=== PATIENT | male | born 1960 | race Caucasian/White ===

== ENCOUNTER 2017-08-31 12:23 | Day surgery (SDC) | payer OTHER ==
[~2017-08-31] VITALS: Ht 182.9 cm; Wt 149.7 kg
[~2017-08-31 12:23] MED LIST: ASPIRIN EC325 MG PO; LISINOPRIL-HCT1 EAC1 PO
[2017-08-31] MEDS ORDERED: FLOMAX0.4 MG PO (12:40)
--- NOTE | 2017-09-01 09:22 | OR ---
[facility] [address] [place], [place] [address] Signed DATE OF OPERATION: 08/31/2017 SURGEON: Lakeshia Adorno MD PREOPERATIVE DIAGNOSIS: Colon evaluation for surveillance. POSTOPERATIVE DIAGNOSIS: Sigmoid diverticulosis. No evidence of polyps. PROCEDURE: Total colonoscopy to cecum. ANESTHESIA: Intravenous sedation, fentanyl 150 mcg, Versed 8 mg. INDICATION: A 57-year-old white man, a patient of Dr. Bull, underwent colonoscopy in the past by me, which was said to be normal. He had an episode of rectal bleeding number of months ago, while having the flu or some other similar illness, but none recently and no bleeding currently, and no diarrhea or constipation. He has no family history of colon cancer that is aware of. He is admitted at this time to undergo colonoscopy. He understands the risks of bleeding, infection, and perforation. FINDINGS: The prep was good. Complete colonoscopy was undertaken to the cecum. There were few diverticula of the sigmoid, but no polyps or colitis. DESCRIPTION OF PROCEDURE: The patient was brought to the endoscopy suite and placed in lateral decubitus position given intravenous sedation to the point of slurred speech and nystagmus. Digital rectal examination was normal. An Olympus video colonoscope was passed in the rectum and manipulated throughout the colon ultimately intubating the cecum itself. The scope was withdrawn from that point and examination was undertaken. A thorough examination with the back and forth motion of the scope allowed for good visualization throughout. Diverticula were noted within the sigmoid area, but there was no sign of polyp anywhere. Retroflexed view of the rectum was normal. The scope was removed and the patient was taken to recovery room in good condition. CONCLUDING DIAGNOSIS: Electronically Signed By: LAKESHIA ADORNO MD 09/01/17 0922 PATIENT NAME: LAKESHIA COLLADO OPERATIVE REPORT DATE OF : 58 REPORT #: [id number] PHYSICIAN: LAKESHIA ADORNO MD PCP: CARLOS BULL DO REPORT IS CONFIDENTIAL AND NOT TO BE RELEASED WITHOUT AUTHORIZATION [facility] [address] [place], [place] [address] Signed Sigmoid diverticulosis. No evidence of polyps. PLAN: Recommend high-fiber diet. Repeat colonoscopy in 10 years sooner if clinically indicated. He will return to the ongoing care of Dr. Bull or his successor in the near future. MD MORGAN Merlos/LUMA /[id number] cc: Carlos Bull DO Copies: CARLOS BULL DO ~ Electronically Signed By: LAKESHIA ADORNO MD 09/01/17 0922 PATIENT NAME: LAKESHIA COLLADO OPERATIVE REPORT DATE OF : 58 REPORT #: [id number] PHYSICIAN: LAKESHIA ADORNO MD PCP: CARLOS BULL DO REPORT IS CONFIDENTIAL AND NOT TO BE RELEASED WITHOUT AUTHORIZATION
== END 2017-08-31 14:40 | disposition home or self-care (01) ==
LOC: DS 12:23 → OPS 12:23 → DS 13:00 → OPS 14:40
PROVIDERS: Surgery
PROC: 0DJD8ZZ Inspection of Lower Intestinal Tract, Via Natural or Artificial Opening Endoscopic (ICD-10-PCS; principal; 2017-08-31 13:00)
DX: Z12.11 Encounter for screening for malignant neoplasm of colon (principal); K57.30 Diverticulosis of large intestine without perforation or abscess without bleeding; I10 Essential (primary) hypertension; G47.30 Sleep apnea, unspecified; R35.0 Frequency of micturition; E66.01 Morbid (severe) obesity due to excess calories; Z99.89 Dependence on other enabling machines and devices; Z68.41 Body mass index [BMI] 40.0-44.9, adult
CPT/HCPCS: 99153; G0500; J2250; J3010; J7120

== ENCOUNTER 2017-09-25 14:25 | Emergency (ER) | payer OTHER ==
[~2017-09-25] VITALS: Ht 182.9 cm; Wt 149.7 kg
[~2017-09-25 14:25] MED LIST changes: +FLOMAX0.4 MG PO
== END 2017-09-25 15:00 | disposition home or self-care (01) ==
LOC: ED 14:25
DX: S61.211A Laceration without foreign body of left index finger without damage to nail, initial encounter (principal); I10 Essential (primary) hypertension; Z79.899 Other long term (current) drug therapy; W23.0XXA Caught, crushed, jammed, or pinched between moving objects, initial encounter
CPT/HCPCS: 99282

== ENCOUNTER 2018-06-22 08:24 | Emergency (ER) | payer OTHER ==
[~2018-06-22] VITALS: Ht 182.9 cm; Wt 154.2 kg
[2018-06-22] MEDS ORDERED: MELOXICAM15 MG PO (09:54)
[2018-06-22] MEDS ORDERED: CARDIZEM CD120 MG PO (09:59)
[2018-06-22] MEDS ORDERED: MACROBID 100 M100 MG PO (09:59)
--- NOTE | 2018-06-22 13:40 | EKG ---
[facility] [address] [facility] [place], [place] [address] Signed Atrial fibrillation with rapid ventricular response Incomplete right bundle branch block Inferior infarct , age undetermined Abnormal ECG No previous ECGs available Confirmed by MYRIAM DURON DO ([id number]) on 06/22/2018 1:39:55 PM Electronically Signed By: MYRIAM DURON DO 06/22/18 1340 PATIENT NAME: LAKESHIA COLLADO A Electrocardiogram DATE OF : 58 PHYSICIAN: MYRIAM DURON DO REPORT #: [id number] REPORT IS CONFIDENTIAL AND NOT TO BE RELEASED WITHOUT AUTHORIZATION
--- NOTE | 2018-06-22 13:40 | EKG ---
[facility] [address] [facility] [place] [address] Signed Normal sinus rhythm Left axis deviation Low voltage QRS Incomplete right bundle branch block Inferior infarct (cited on or before 22-JUN-2018) Abnormal ECG When compared with ECG of 22-JUN-2018 08:31, (Unconfirmed) Sinus rhythm has replaced Atrial fibrillation Vent. rate has decreased BY 73 BPM Confirmed by MYRIAM DURON DO ([id number]) on 06/22/2018 1:40:04 PM Electronically Signed By: MYRIAM DURON DO 06/22/18 1340 PATIENT NAME: LAKESHIA COLLADO Electrocardiogram DATE OF : 58 PHYSICIAN: MYRIAM DURON DO REPORT #: [id number] REPORT IS CONFIDENTIAL AND NOT TO BE RELEASED WITHOUT AUTHORIZATION
== END 2018-06-22 10:12 | disposition home or self-care (01) ==
LOC: ED 08:24
DX: I48.91 Unspecified atrial fibrillation (principal); R31.9 Hematuria, unspecified; I10 Essential (primary) hypertension; Z87.440 Personal history of urinary (tract) infections; Z79.899 Other long term (current) drug therapy
CPT/HCPCS: 71045; 80053; 81001; 83880; 84484; 85025; 93005; 93010; 96374; 99285-25

== ENCOUNTER 2020-03-02 14:02 | Emergency (ER) | payer OTHER ==
[~2020-03-02] VITALS: Ht 182.9 cm; Wt 143.3 kg
[~2020-03-02 14:02] MED LIST changes: +CARDIZEM CD120 MG PO; +CIPRO500 MG PO; +DILTIAZEM ER180 MG PO; +MACROBID 100 M100 MG PO; +MELOXICAM15 MG PO; +OXYBUTYNIN CHLOR5 MG PO; +PERCOCET 5-3251 EACH PO
[2020-03-02] MEDS ORDERED: OXYBUTYNIN CHLO10 MG PO (14:09)
[2020-03-02] MEDS ORDERED: HYDROCHLOROTHIA25 MG PO (14:09)
--- NOTE | 2020-03-03 15:19 | EKG ---
[facility] [address] [facility] [place] [address] Signed Normal sinus rhythm Left axis deviation Inferior infarct (cited on or before 22-JUN-2018) Abnormal ECG When compared with ECG of 22-JUN-2018 10:03, Vent. rate has increased BY 31 BPM Confirmed by MYRIAM DURON DO ([id number]) on 03/03/2020 10:59:15 AM Electronically Signed By: MYRIAM DURON DO 03/03/20 1519 PATIENT NAME: LAKESHIA COLLADO Electrocardiogram DATE OF : 58 PHYSICIAN: MYRIAM DURON DO REPORT #: [id number] REPORT IS CONFIDENTIAL AND NOT TO BE RELEASED WITHOUT AUTHORIZATION
== END 2020-03-02 14:57 | disposition home or self-care (01) ==
LOC: ED 14:02
DX: R00.2 Palpitations (principal); I10 Essential (primary) hypertension; I48.91 Unspecified atrial fibrillation; Z79.899 Other long term (current) drug therapy; Z79.82 Long term (current) use of aspirin
CPT/HCPCS: 93005; 93010; 99284-25

== ENCOUNTER 2020-12-31 07:30 | Day surgery (SDC) | payer OTHER ==
--- NOTE | 2020-12-29 03:50 | PATH ---
[facility] [address] [place], [place] [address] Signed ORDERING PHYSICIAN: Nisreen Hogan MD PATIENT NAME: LAKESHIA COLLADO GENDER: Ann Marie : 1960 SPECIMEN(S): MOLECULAR PATHOLOGY RESULTS: SARS-CoV-2 Not Detected ADDITIONAL NOTES.: The Deane Fusion SARS-CoV-2 Assay is a multiplex real-time PCR (RT-PCR) in vitro diagnostic test intended for the qualitative detection of RNA from SARS-CoV-2 from individuals who meet COVID-19 clinical and/or epidemiological criteria. In general, SARS-CoV-2 RNA can be detected during the acute phase of infection. Positive results indicate the presence of SARS-CoV-2 RNA. Clinical correlation with patient history and other diagnostic information is necessary to determine patient infection status. Positive results do not rule out bacterial infection or co-infection with other viruses. Negative results do not preclude SARS-CoV-2 infection and should not be used as the sole basis for patient management decisions. Negative results must be combined with other clinical observations, patient history, and epidemiological information. The Deane Fusion SARS-CoV-2 Assay is not yet approved or cleared by the [place] FDA. When there are no FDA-approved or cleared tests available, and other criteria are met, FDA can make tests available under an emergency access mechanism called an Emergency Use Authorization (EUA). The EUA for this test is supported by the Venipuncturist of Health and Human Service's (HHS's) declaration that circumstances exist to justify the emergency use of in vitro diagnostics for the detection and/or diagnosis of the virus that causes COVID-19. This EUA will remain in effect for the duration of the COVID-19 declaration justifying emergency of IVDs, unless it is terminated or revoked by FDA, after which the test may no longer be used. The Deane Fusion SARS-CoV-2 Assay is for use only under EUA in US laboratories certified under the Clinical Laboratory Improvement Amendments of 1987 (CLIA) to perform high complexity tests. [facility] is certified under CLIA to perform high complexity PATIENT NAME: LAKESHIA COLLADO PATHOLOGY DATE OF : 58 REPORT #: [id number] PHYSICIAN: ALEJANDRO VARGAS PCP: WHITNEY CARTER PA-C REPORT IS CONFIDENTIAL AND NOT TO BE RELEASED WITHOUT AUTHORIZATION [facility] [address] [place] [id number] Signed clinical laboratory testing. Federico Enriquez PERFORMING LABORATORY.: Molecular testing was performed by [facility], [address], [place] [address], , CLIA #: [id number]. Diagnostician: System Interface Pathologist Electronically Signed 12/29/2020 Copies: ~ PATIENT NAME: LAKESHIA COLLADO PATHOLOGY DATE OF : 58 REPORT #: [id number] PHYSICIAN: ALEJANDRO VARGAS PCP: WHITNEY CARTER PA-C REPORT IS CONFIDENTIAL AND NOT TO BE RELEASED WITHOUT AUTHORIZATION
[~2020-12-31] VITALS: Ht 182.9 cm; Wt 150.0 kg
[~2020-12-31 07:30] MED LIST changes: +CARTIA XT180 MG PO; +HYDROCHLOROTHIA25 MG PO; +MOBIC15 MG PO; +OXYBUTYNIN CHLO10 MG PO
--- NOTE | 2020-12-31 13:28 | NUR ---
12/31/20 1328 Beatriz Linares 1255- PT TO PACU IN SUPINE POSITION. EYES CLOSED DOES NOT RESPOND TO VERBAL OR TACTILE STIMULI. ORAL AND NASAL AIRWAY IN PLACE. SP02 90% ON 15 L O2 VIA SIMPLE MASK. CUTTER WOODWIND REEDS AT BEDSIDE. 1300- PT HOB ELEVATED. PT STIMULATED WITH JAW THRUST MANUVER AND ENCOURAGED TO TAKE DEEP BREATHS. SPO2 90% ON 15 L O2 VIA SIMPLE MASK. PT MOVING EXTREMITIES BUT WILL NOT YET FOLLOW COMMANDS. WILL CONTINUE TO MONITOR. 1305- PT TONGUES OUT ORAL AIRWAY AND OPENS EYES. PT ENCOURAGED TO COUGH AND TAKE DEEP BREATHS. SPO2 100%. O2 TITRATED DOWN TO 10 L VIA SIMPLE MASK. PT DENIES PAIN. VSS. URINE RED, CATHETER FLUSHED, BLOOD CLOT OBSERVED. BRIGHT YELLOW URINE OBSERVED FOLLOWING FLUSH. 1310- PT FOLLOWING COMMANDS AND DENIES PAIN. RESPONDS TO VERBAL STIMULI. BREATHING EASY AND UNLABORED WITH INTERMITTANT SLEEP APNEA. PT ENCOURAGED TO TAKE DEEP BREATHS. SPO2 >95% 1318- PT KEEPS EYES OPEN, DRIFTS OFF PERIODICALLY. O2 TITRATED DOWN TO 6 L VIA SIMPLE MASK. URINE LIGHT YELLOW WITH CBI 1324- PT DENIES PAIN AND NAUSEA. PT BREATHING EASY AND UNLABORED. SPO2 >95%. O2 TITRATED DOWN TO ROOM AIR. PT EDUCATED ABOUT COUGHING AND DEEP BREATHING. RETURN DEMONSTRATION OBSERVED. LIGHT YELLOW URINE OBSERVED IN CATHETER TUBING.
--- NOTE | 2020-12-31 13:30 | NUR ---
Patient resting in bed, eyes closed, respirations even and non labored. Patient has no distress. Vital signs stable, afebrile. Continuous bladder irrigation infusing; farris patent-pink urine draining. Patient has no distress. Personal supplies and call light within reach.
--- NOTE | 2020-12-31 14:42 | NUR ---
New admit to the floor from surgery. Patient alert and oriented x4. Patient denies pain at this time. Continuous bladder irrigation infusing; patent tubing, urine yellow/pink and concentrated. IV fluids started per provider order. Patient oriented to room and call light. CPox intact 98% on room air. CPAP at bedside. No needs at this time. Personal supplies and call light within reach.
[2020-12-31] MEDS ORDERED: LEVOFLOXACIN500 MG PO (15:22)
[2020-12-31] MEDS ORDERED: OXYCODONE HCL5 MG PO (15:22)
--- NOTE | 2020-12-31 15:39 | NUR ---
PATIENT SLEEPING WITH CPAP ON. STAFF NURSE STATES PATIENT IS INDEPENDENT AND DOES NOT SEEM TO HAVE BARRIERS TO HOME DISCHARGE. SHE WILL PUT A CONSULT IN IF ANYTHING ARISES.
--- NOTE | 2020-12-31 16:38 | NUR ---
Patient in bed resting, eyes closed, respirations even and non labored. Patient has cpap on and running, cpox in place-92%. Patient's vital signs stable, afebrile. Dinner ordered at this time. Continuous bladder irrigation infusing. Andrew intact/patent; pink colored urine noted, no clots. Patient denies pain. Personal supplies and call light within reach.
--- NOTE | 2020-12-31 18:50 | NUR ---
Patient doing well at this time, just finished dinner. at bedside. All post op vital signs are stable, afebrile. Patient continues to deny pain. Continuous bladder irrigation infusing, pink urine output at this time. Patient has no distress and or needs.
--- NOTE | 2020-12-31 19:05 | NUR ---
BEDSIDE REPORT RECEIVED FROM OFFGOING RNNANCY. PT DENIES NEEDS AT THIS TIME. CALL LIGHT IN REACH.
--- NOTE | 2020-12-31 20:10 | NUR ---
PT ASSESSMENT COMPLETE. PT DENIES PAIN, NAUEA, OR SOB. 3 WAY CATH WITH PINK TINGED URINE PRESENT IN TUB. NO CLOTS NOTED. IRRIGATION,NS, PLACED AT SLOW DRIP BY DR. FAULKNER WHO IS IN TO SEE PT. NEW NS BAG HUNG AT THIS TIME. VS OBTAINED, WNL. IV FLUSHED, IVF INFUSING ORDERED, PATENT, WNL. PT ORIENTED TO POC FOR THIS SHIFT, CALL LIGHT USE. PT STATES UNDERSTANDING. ICE WATER REFILLED. DENIES FURTHER NEEDS AT THIS TIME. CALLL IGHT IN REACH.
--- NOTE | 2020-12-31 23:29 | NUR ---
INFORMATICA DEVELOPER TO ROOM TO ROUND ON PT. PT WAKES EASILY. STATES THAT HE IS HAVING A BIT OF DISCOMFORT AT URINARY MEATUS. PT STATES PAIN IS VERY MINIMAL AT THIS POINT. DENIES NEED FOR INTERVENTION. REQUESTS PUDDING. DENIES FURTHER NEEDS AT THIS TIME. CALL LIGHT IN REACH.
--- NOTE | 2021-01-01 02:36 | NUR ---
PT ASSESSMENT COMPLETE. PT RESTING IN BED WITH CPAP ON APPROPRIATELY. PT DENIES PAIN, NAUSEA, OR SOB. [address] WAY DAIVD WITH YELLOW COLORED URINE PRESENT IN TUBING, CBI TITRATED. NO CLOTS PRESENT. IVF INFUSING ORDERED.VS OBTAINED, WNL. ICE WATER REFILLED. PT DENIES FURTHER NEEDS. CALL LIGHT IN REACH.
--- NOTE | 2021-01-01 04:28 | NUR ---
NEW BAG OF NS FOR CBI HUNG, URINE IS PINK TINGED IN TUBING. NO CHANGES TO CBI AT THIS TIME.
--- NOTE | 2021-01-01 06:38 | NUR ---
PT RESTING IN BED WITH EYES CLOSED. CPAP IN PLACE APPROPRIATELY. VS OBTAINED. WNL. PINK TINGED URINE WITH RED SEDIMENT PRESENT IN TUBING. CBI INCREASED AT THIS TIME. PT DENIES FURTHER NEEDS. DECLINES TO HAVE HIS ICE WATER REFILLED. CALL ISIDRA DC.
--- NOTE | 2021-01-01 07:28 | NUR ---
Patient resting in bed, eyes closed, respirations even and non labored. Patient has cpap intact, cpox reading 92% at this time. Patient has no distress. CBI running, urine pink at this time. Patient has no needs. Personal supplies and call light within reach.
--- NOTE | 2021-01-01 09:30 | NUR ---
CBI stopped at this time as urine is clear in color.
--- NOTE | 2021-01-01 09:34 | NUR ---
PATIENT IN BED RESTING. VITALS AND I&O'S CHARTED. CALL LIGHT IN REACH. NO FURTHER NEEDS AT THIST ASHLEY.
--- NOTE | 2021-01-01 09:40 | NUR ---
SPOKE WITH PATIENT IN ROOM. PLANS TO RETURN HOME WITH . HE IS EMPLOYED, DRIVES. DENIES FINANCIAL WORRIES FOR MEDS/FOOD/UTILITIES. USES A CPAP BUT NO OXYGEN. WILL LET NURSES KNOW IF HE THINKS OF ANYTHING NEEDED, BUT AT THIS TIME NO BARRIERS TO DC HOME. WILL F/U WITH DR CISNEROS AND PCP.
--- NOTE | 2021-01-01 10:45 | NUR ---
CBI irrigation removed and farris clamped from irrigation at this time. Patient tolerated well.
--- NOTE | 2021-01-01 11:58 | NUR ---
MED REC COMPLETE
--- NOTE | 2021-01-02 08:52 | OR ---
[facility] [address] [place], [place] [address] Signed DATE OF OPERATION: 12/31/2020 SURGEON: Estephania Cisneros MD PREOPERATIVE DIAGNOSES: 1. Bladder lesion x2. 2. Severe cystitis. 3. Trilobar benign prostatic hyperplasia with lower urinary tract symptoms. POSTOPERATIVE DIAGNOSES: 1. Bladder lesion x2. 2. Severe cystitis. 3. Trilobar benign prostatic hyperplasia with lower urinary tract symptoms. NAMES OF PROCEDURES: 1. Diagnostic cystoscopy. 2. Transurethral resection of bladder tumor-small. 3. Transurethral resection of prostate. ANESTHESIA: General. ESTIMATED BLOOD LOSS: 20 mL. COMPLICATIONS: None. DRAINS: A 22-Saudi Arabian three-way Andrew catheter, connected to continuous bladder irrigation. INDICATIONS FOR PROCEDURE: Mr. Garibay is a very pleasant 60-year-old gentleman who is well known to me. For the past couple of years, he has been experiencing urinary urgency, frequency, and intermittent bouts of gross hematuria. He underwent a cystoscopy last year, which revealed multiple patches of erythema and extreme friability consistent with cystitis. He adopted a low acid diet and he responded quite well to this. Recently he was seen for an unrelated issue and I made the decision to send his urine for cytology. His cytology came back atypical and this was reflexed for FISH testing. 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 Once I received these results, I recommended Electronically Signed By: ESTEPHANIA CISNEROS MD 01/02/21 0852 PATIENT NAME: LAKESHIA GARIBAY OPERATIVE REPORT DATE OF : 58 REPORT #: [id number] PHYSICIAN: ESTEPHANIA CISNEROS MD PCP: WHITNEY CARTER PA-C REPORT IS CONFIDENTIAL AND NOT TO BE RELEASED WITHOUT AUTHORIZATION [facility] [address] [place], [place] [address] Signed to Lakeshia that he undergo another diagnostic cystoscopy along with a CT IVP. His CT IVP is still pending. Diagnostic cystoscopy was performed last week which revealed two plaque like papillary lesions, one of which was at the base of the bladder and another was just superior to the left ureteral orifice. At that time, I recommended he undergo immediate transurethral resection of the prostate. Also, noted on cystoscopy was trilobar prostatic hyperplasia. The patient experiences mild weakness in his force of stream. However, he did agree to undergo transurethral resection of the prostate when it was offered to him. He now presents today to undergo the aforementioned procedures. OPERATIVE FINDINGS: 1. Just on entering the bladder, the patient's bladder begins to ooze blood immediately, making it difficult to locate the bilateral ureteral orifices. The suspicious lesion superior to the left ureteral orifice was identified immediately and this was transurethrally resected using a bipolar loop. 2. The other area of suspicion near the base of the bladder was also resected with a transurethral loop without difficulty. All the while, the patient's bladder oozed blood from all over the bladder wall, primarily in the areas of the posterior and lateral vasquez of the bladder. 3. IV fluorescein was used to assist with identification of the bilateral ureteral orifices. The patient required three doses of IV fluorescein before we could see adequate efflux from the ureters and identify them. Both ureters were intact, did not sustain any iatrogenic injury related to resection of the bladder lesion. Once I was satisfied that all the suspicious lesions were successfully resected, I then turned to resection of the prostate. The patient's median lobe and then both of the lateral lobes were resected using a 24-Saudi Arabian loop with bipolar electrocautery without incident. 4. At the end of the procedure, a 22-Saudi Arabian three-way Andrew catheter was inserted into the patient's bladder and connected to continuous bladder irrigation. DESCRIPTION OF PROCEDURE: After informed consent was obtained, the patient was taken back to the operating room. He was transferred from the [facility] to the operating room table, where general anesthesia was induced. He was placed in the dorsal lithotomy position and his genitalia were prepped and draped in the standard sterile fashion. The fossa navicularis was dilated using [place] sounds from 18-Saudi Arabian to 30-Saudi Arabian without difficulty. I then inserted the resectoscope on a 30-degree lens using a visual obturator. Once with the resectoscope in place, I turned my attention to the areas of suspicion within the patient's bladder. Throughout the procedure, the patient's bladder oozed a good deal of blood, likely due to his associated cystitis. This required multiple Burt irrigations to keep the blood clots out of the bladder to allow full visualization of the bladder lesions. Despite this, I was able to resect the left lateral wall lesion and the tumor base lesion and they were completely resected and placed in a specimen cup to be sent to pathology for evaluation. These areas of resection were then carefully cauterized using Electronically Signed By: ESTEPHANIA CISNEROS MD 01/02/21 0852 PATIENT NAME: LAKESHIA GARIBAY OPERATIVE REPORT DATE OF : 58 REPORT #: [id number] PHYSICIAN: ESTEPHANIA CISNEROS MD PCP: WHITNEY CARTER PA-C REPORT IS CONFIDENTIAL AND NOT TO BE RELEASED WITHOUT AUTHORIZATION [address] [place], [place] [address] Signed the bipolar electrocautery. There were also a couple of areas of erythema near the base of the bladder that were cauterized completely versus resected. With the use of the fluorescein, I was finally able to appreciate efflux of urine from both ureters, which was reassuring since a lot of cauterization had been performed prior to this. The ureters ended up being a lot further superior to where a majority of the resection was performed. Once the bladder lesions were successfully resected and cauterized, I turned my attention to the prostate. The middle lobe of the prostate was resected 1st followed by the left lateral lobe and then the right lateral lobe. This was a good deal of prostate tissue and it was approximately 2 cm from bladder neck to verumontanum. The prostate was resected without incident and there was no issue in maintaining adequate hemostasis. A Burt syringe was used to extricate the prostate chips from the bladder multiple times. Once the prostate was fully resected and the bladder was free of prostate chips, I re-evaluated to be sure there was adequate hemostasis of the TUR defect. Once this was complete, I removed the resectoscope and inserted a 0.035 Sensor wire through the sheath and into the patient's bladder. The sheath was then removed leaving the wire behind. Over the wire, I passed a 22-Saudi Arabian three-way Andrew catheter into the patient's bladder without difficulty. The Andrew catheter balloon was filled with 30 mL of water and then connected to continuous bladder irrigation. Both the prostate and bladder lesions were sent separately to pathology for evaluation. The procedure was then terminated. The patient tolerated the procedure well without any complications. He will now be transferred to the postanesthesia care unit in stable condition. DISPOSITION: Once the patient awakes from anesthesia, I will discuss the details of today's procedure with him and answer all of his questions. He will be notified of his pathology results as soon as they are available to me. He will likely stay the night on CBI and which will be slowly weaned to keep his urine clear to light pink in color. He will likely be discharged home tomorrow morning with a Andrew catheter gravity drainage. His catheter will be removed later this week at clinic via a voiding trial. He will be sent home with oxycodone 5 mg one tablet p.o. q.6 hours p.r.n. pain, dispense #30, along with Cipro 500 mg p.o. b.i.d. for a total of 7 days. If his bladder lesion does reveal urothelial carcinoma, I will recommend that he be sent to see a urological oncologist in particular if the pathology reveals any evidence of carcinoma in situ. MD WILLIAM Cowart/LUMA Electronically Signed By: ESTEPHANIA CISNEROS MD 01/02/21 0852 PATIENT NAME: LAKESHIA GARIBAY OPERATIVE REPORT DATE OF : 58 REPORT #: [id number] PHYSICIAN: ESTEPHANIA CISNEROS MD PCP: WHITNEY CARTER PA-C REPORT IS CONFIDENTIAL AND NOT TO BE RELEASED WITHOUT AUTHORIZATION [address] [place] [address] Signed /[id number] Copies: ~ Electronically Signed By: ESTEPHANIA CISNEROS MD 01/02/21 0852 PATIENT NAME: LAKESHIA GARIBAY A OPERATIVE REPORT DATE OF : 58 REPORT #: [id number] PHYSICIAN: ESTEPHANIA CISNEROS MD PCP: WHITNEY CARTER PA-C REPORT IS CONFIDENTIAL AND NOT TO BE RELEASED WITHOUT AUTHORIZATION
--- NOTE | 2021-01-02 09:54 | PATH ---
[facility] [address], [place] [address] Signed SPECIMEN(S): A BLADDER LESION SPECIMEN(S): B PROSTATE TISSUE SPECIMEN SOURCE: A. BLADDER LESION B. PROSTATE TISSUE CLINICAL HISTORY: Gross hematuria; cystitis. FINAL PATHOLOGIC DIAGNOSIS: A. 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 - Histologic grade: High grade. - Tumor site: Not designated. - Tumor configuration: Papillary. - Muscularis propria: Present. - Tumor extension: Tumor invades lamina propria. - Lymph-vascular invasion: Not identified. B. 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 - Histologic grade: High grade. - Tumor site: Prostatic urethra. - Tumor configuration: Papillary. - Tumor extension: Tumor invades the prostatic stroma and surrounding ducts. - Lymph-vascular invasion: Not identified. COMMENT: The previous cytologic material ([id number]) is reviewed in conjunction with the current case. These findings are discussed with Dr. Nisreen Hogan on January 01, 2021. As part of [facility]' Quality Improvement Program, this case was reviewed by another member of our pathology staff. BRP:NA:sm:[id number] MICROSCOPIC EXAMINATION: PATIENT NAME: LAKESHIA COLLADO PATHOLOGY DATE OF : 58 REPORT #: [id number] PHYSICIAN: ALEJANDRO PATHOLOGY PCP: WHITNEY CARTER PA-C REPORT IS CONFIDENTIAL AND NOT TO BE RELEASED WITHOUT AUTHORIZATION [facility] [address], [place] [address] Signed Histologic sections of all submitted blocks are examined by light microscopy. These findings, together with the gross examination, support the pathologic diagnosis. GROSS DESCRIPTION: Two specimens are received in two containers, labeled "JW." A. The specimen, labeled "JW, A," and designated on the requisition "bladder lesion," is received in formalin and consists of sutherland-pink rubbery tissue fragments with clot material measuring 2.0 x 1.6 x 0.5 cm in aggregate and weighing less than 2 g. Specimen is filtered and entirely submitted in cassette A1. B. The specimen, labeled "JW, B," and designated on the requisition "prostate tissue," is received in formalin and consists of sutherland-pink rubbery tissue fragments with clot material measuring 7.6 x 7.2 x 1.4 cm in aggregate and weighing 14 g. Approximately 90% of the specimen is submitted in cassettes B1-B8. AT (under the direct supervision of a pathologist) The Gross Description was prepared using a voice recognition system. The report was reviewed for accuracy; however, sound-alike word errors, addition and/or deletions may occur. If there is any question about this report, please contact Client Services. PERFORMING LABORATORY: The technical component was performed by [facility], [address] [place] [id number] (Instructor Dramatic Arts: Patricia Iverson MD; CLIA# [id number]). The professional interpretation was performed by [facility], [facility], [address] [place] [address]. Diagnostician: Kimani Logan MD Pathologist Electronically Signed 01/02/2021 Copies: ~ PATIENT NAME: LAKESHIA COLLADO PATHOLOGY DATE OF : 58 REPORT #: [id number] PHYSICIAN: ALEJANDRO VARGAS PCP: WHITNEY CARTER PA-C REPORT IS CONFIDENTIAL AND NOT TO BE RELEASED WITHOUT AUTHORIZATION
== END 2021-01-01 12:09 | disposition home or self-care (01) ==
LOC: DS 07:30 → MS 13:45 → DS 01-01 12:09
PROVIDERS: ATTEND Urology
PROC: 0TBB8ZZ Excision of Bladder, Via Natural or Artificial Opening Endoscopic (ICD-10-PCS; principal; 2020-12-31 09:00)
PROC: 0VT08ZZ Resection of Prostate, Via Natural or Artificial Opening Endoscopic (ICD-10-PCS; 2020-12-31 09:00)
DX: C67.9 Malignant neoplasm of bladder, unspecified (principal); C61 Malignant neoplasm of prostate; N30.91 Cystitis, unspecified with hematuria; N40.1 Benign prostatic hyperplasia with lower urinary tract symptoms; R35.0 Frequency of micturition; R39.15 Urgency of urination; I48.0 Paroxysmal atrial fibrillation; G47.33 Obstructive sleep apnea (adult) (pediatric); I10 Essential (primary) hypertension; E66.01 Morbid (severe) obesity due to excess calories; G89.29 Other chronic pain; Z68.41 Body mass index [BMI] 40.0-44.9, adult
CPT/HCPCS: 00912; 80048; C1769; J0330; J0690; J0696; J1100; J1885; J2250; J2270; J2405; J2704; J2765; J3010; J7030; J7121

== ENCOUNTER 2024-02-11 14:21 | Emergency (ER) | payer OTHER ==
[~2024-02-11] VITALS: Ht 170.2 cm; Wt 143.7 kg
[~2024-02-11 14:21] MED LIST changes: +ACETAMINOPHEN500 MG PO; +ATIVAN1 MG PO; +COREG3.125 MG PO; +DEXAMETHASONE4 MG PO; +ELIQUIS5 MG PO; +FUROSEMIDE40 MG PO; +IBUPROFEN600 MG PO; +LEVOFLOXACIN500 MG PO; +ONDANSETRON ODT8 MG PO; +OXYCODON-ACETA1 EAC2 PO; +OXYCODONE HCL5 MG PO; +POTASSIUM CHLO10 ME2 PO
[2024-02-11] MEDS ORDERED: XARELTO20 MG PO (15:16)
[2024-02-11] MEDS ORDERED: FARXIGA10 MG PO (15:16)
[2024-02-11 15:50] LABS: BASOPHILS 0.6 % (0-2); EOSINOPHILS 1.6 % (0-6); HEMATOCRIT 44.1 % (35.0-50.0); HEMOGLOBIN 14.8 g/dL (12.0-18.0); MCH 30.9 (27-36); MCHC 33.5 g/dl (30-36); MCV 92.2 fl (81-99); MONOCYTES 7.1 % (0-12); NEUTROPHILS 79.7 % (39-80); PLATELET COUNT 247 K/uL (140-440); RBC 4.78 M/ul (4.3-5.7)
[2024-02-11 16:11] LABS: ALBUMIN 3.7 g/dL (3.4-5.0); ALBUMIN/GLOBULIN RATIO 0.9 (1.1-2.4); ANION GAP 11.9 (7-21); BILIRUBIN, TOTAL 1.3 ng/dL (0.2-1.0); BUN/CREATININE RATIO 16.66 (6.0-28.6); CALCIUM 9.3 mg/dL (8.5-10.1); CREATININE, SERUM 1.2 mg/dL (0.70-1.30); POTASSIUM 3.9 mmol/L (3.5-5.1); PROTEIN, TOTAL 7.8 g/dL (6.4-8.2)
[2024-02-11] MEDS ORDERED: CEPHALEXIN500 M1 PO (17:57)
[2024-02-11 18:07] VITALS: BP 133/60
== END 2024-02-11 18:07 | disposition home or self-care (01) ==
LOC: ED 14:21
PROVIDERS: Emergency Medicine
DX: S80.02XA Contusion of left knee, initial encounter (principal); S70.02XA Contusion of left hip, initial encounter; S70.01XA Contusion of right hip, initial encounter; L03.90 Cellulitis, unspecified; I10 Essential (primary) hypertension; I48.91 Unspecified atrial fibrillation; W01.0XXA Fall on same level from slipping, tripping and stumbling without subsequent striking against object, initial encounter; Z79.899 Other long term (current) drug therapy
CPT/HCPCS: 36415; 72170; 73560; 80053; 85025; 99283